=== PATIENT | female | born 1970 | race African-American/Black ===

== ENCOUNTER 2016-10-12 10:40 | Emergency (ER) | payer SELFPAY ==
[~2016-10-12] VITALS: Ht 175.3 cm; Wt 81.6 kg
[2016-10-12] MEDS ORDERED: ACETAMINOPHEN 325 MG TAB PO ONE ×2 (12:30→12:40)
[2016-10-12 12:54] VITALS: BP 136/69
== END 2016-10-12 12:54 | disposition home or self-care (01) ==
LOC: ER 10:54
DX: G51.3 Clonic hemifacial spasm (principal); R51 Headache; Z88.2 Allergy status to sulfonamides